=== PATIENT | male | born 1940 | race African-American/Black ===

== ENCOUNTER 2019-07-27 11:32 | Inpatient (IN) | payer OTHER ==
--- OUTSIDE RECORDS SUMMARY | 2019-07-27 11:34 | XMS REPORT | Summary of Care ---
:1940 Author Organization [facility] Address One [facility] [place] [id number] Care Team Providers Name Role Phone Unavailable Primary Care Provider Unavailable Reason for Referral Radiology Services (Routine) Status Reason Specialty Diagnoses / Referred By Contact Referred To Contact Procedures Pending Radiology Diagnoses Renal mass, right Gabriel Arenas MD Bc Us Imaging Procedures US RENAL BILATERAL [address] [place] [address] [address] [facility] [address] [place] [phone] Consult, Test & Treat (Routine) Status Reason Specialty Diagnoses / Referred By Referred To Procedures Contact Contact Pending Consult, Test, Urology Diagnoses Renal mass, right Gabriel Arenas, Luis Mccurdy, and Treat Procedures [place] OFFICE OUTPATIENT NEW 30 MINUTES MD DAM[place] [address] [facility], [place] [address] Phone: Reason for Visit Reason Comments Initial Consultation Encounter Details Date Type Department Care Team Description 07/08/2019 Office Visit [facility] Gabriel Arenas MD Initial Consultation Medicine Urology [address] [place] [address] 10th Floor, [address] [place], [place] [phone] Allergies No Known Allergiesdocumented as of this encounter (statuses as of 07/08/2019) Medications No known medicationsdocumented as of this encounter (statuses as of 07/08/2019) Active Problems Not on filedocumented as of this encounter (statuses as of 07/08/2019) Social History Tobacco Use Types Packs/Day Years Used Date Former Smoker Cigarettes 1 07/08/2011 - 07/08/2017 Smokeless Tobacco: Never Used Tobacco Cessation: Counseling Given: No Alcohol Use Drinks/Week oz/Week Comments Not Currently Sex Assigned at Date Recorded Not on file Job Start Date Occupation Industry Not on file Not on file Not on file Travel History Travel Start Travel End No recent travel history available. documented as of this encounter Last Filed Vital Signs Vital Sign Reading Time Taken Comments Blood Pressure 126/65 07/08/2019 2:50 PM EKG TECHNICIAN Pulse 66 07/08/2019 2:50 PM EKG TECHNICIAN Temperature 36.6 C (97.9 F) 07/08/2019 2:50 PM EKG TECHNICIAN Respiratory Rate - - Oxygen Saturation - - Inhaled Oxygen Concentration - - Weight - - Height - - Body Mass Index - - documented in this encounter Progress Notes Gabriel Arenas MD - 07/08/2019 3:00 PM CST Jose Saunders is a 78 y.o. male comes in with grand daughter with chief complaint of kidney mass CKD Work up for hematuria MATT and CT without contrast. Exophytic 2.5 cm right renal mass with solid component Benign appearng cysts left kidney No Known Allergies No current outpatient medications on file. Past Medical History: Diagnosis Date Hypertension Kidney disease Prostate cancer (HCCode) No past medical history pertinent negatives. No past surgical history on file. ROS: GENERAL: Denies recent weight changes, fever, weakness, fatigue, headaches INTEGUMENTARY: Negative EYES: Negative EARS, NOSE, MOUTH AND THROAT: Negative MUSCULOSKELATAL: Negative RESPIRATORY: Negative NEUROLOGIC: Negative CARDIOVASCULAR: Negative ENDOCRINE: Negative GASTROINTESTINAL: Negative GENITOURINARY: As per HPI HEMATOLOGIC/LYMPHATIC: Negative PSYCHOLOGIC: Negative ALLERGY/IMMUNOLOGIC: Negative OTHER: Denies HIV/AIDS PE GENERAL: Well developed, well nourished, in no acute distress. 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 Discussed strategy of observation with deferred therapy if lesion grows to > 2cm. I spent 30 minutes with patient and family, reviewing history and outside records and relevant imaging,conducting physical exam, plus discussion and coordination of care. More than 50% was spent counseling the patient on prognosis and treatment plan. Plan: ROV [address] Mccurdy with pre-clinic MATT documented in this encounter Plan of Treatment Name Type Priority Associated Diagnoses Order Schedule US RENAL BILATERAL Imaging Routine Renal mass, right Expected: 10/06/2019, Expires: 07/08/2020 Name Type Priority Associated Diagnoses Order Schedule AMB REF TO UROLOGY Outpatient Referral Routine Renal mass, right Ordered: [facility] 07/08/2019 Health Maintenance Due Date Last Done Comments TETANUS SHOT (ADULT) 1957 MEDICARE AWV (Initial) 12/03/2007 FALL SCREEN 12/25/2007 PNEUMOVAX >=65 (PPSV23) 12/25/2007 PREVNAR >=65 (PCV13) 12/25/2007 FLU VACCINE > 6 MONTHS 01/02/2019 documented as of this encounter Results Not on filedocumented in this encounter Visit Diagnoses Diagnosis Renal mass, right - Primary Unspecified disorder of kidney and ureter documented in this encounter Insurance Payer Benefit Plan / Subscriber ID Effective Dates Phone Address Type Group MEDICARE MEDICARE PART A xxxxxxxxxxx 2007-Present [address] Medicare [place] [address] [address] [place] [address] documented as of this encounter"
[2019-07-27 12:12] LABS: Arterial Blood Carboxyhemoglob 1.2 % (0-1.5); Blood Gas Oxyhemoglobin 89.7 % (94-97); Blood O2 Saturation 91.5 % (92-98.5)
[2019-07-27] MEDS ORDERED: METHYLPREDNISOLONE 125 MG INJ ONE (12:24)
[2019-07-27] MEDS ORDERED: MAGNESIUM SULFATE 1 gm IVPB 1 GM/100 ML BAG IV ONE (12:24)
[2019-07-27] MEDS ORDERED: LEVALBUTEROL 1.25 MG/3 ML NEB ONE (12:24)
--- NOTE | 2019-07-27 12:28 | RAD REPORT ---
EXAM DESCRIPTION: Elle Single View07/27/2019 12:15 pm CLINICAL HISTORY: Cough COMPARISON: none FINDINGS: Bilateral pulmonary opacities. Small pleural effusions suspected. The heart is enlarged IMPRESSION: These findings probably indicate CHF. Pneumonia can also have this appearance
[2019-07-27 12:40] LABS: Absolute Lymphocytes (CBC) 0.5 K/uL (0.7-4.9); Basophils % 0.9 % (0-1.3); Hematocrit 36.9 % (39.6-49.0); MPV 9.4 fL (7.6-11.3); RBC Red Blood Cell Count 4.48 M/uL (4.33-5.43)
[2019-07-27 12:56] LABS: ALT/SGPT 18 U/L (12-78); AST/SGOT 29 U/L (15-37); Albumin 3.4 g/dL (3.4-5.0); Alkaline Phosphatase 80 U/L (45-117); BUN Blood Urea Nitrogen 46 mg/dL (7-18); Bicarbonate 26 mmol/L (21-32); Bilirubin Direct 0.1 mg/dL (0-0.2); Bilirubin Total 0.5 mg/dL (0.2-1.0); Glucose Level 133 mg/dL (74-106); Lipase 261 U/L (73-393); NT PRO-BNP 1372 pg/mL (<450); Potassium 4.6 mmol/L (3.5-5.1); Protein, Total 7.2 g/dL (6.4-8.2); Sodium Level 138 mmol/L (136-145); Troponin (Emerg Dept Use Only) < 0.02 ng/mL (0.0-0.045)
[2019-07-27 13:05] LABS: Blood Morphology Comment NOT SEEN (NOT SEEN); Platelet Estimate ADEQ; Urine White Blood Cell Casts OK
[2019-07-27] MEDS ORDERED: ONDANSETRON 4 MG/2 ML VIAL IV PRN (13:40)
[2019-07-27] MEDS ORDERED: ACETAMINOPHEN 500 MG TAB PO PRN (13:40)
--- NOTE | 2019-07-27 13:42 | EDPHYS ---
Physician Documentation [facility] Name: Wyatt Saunders Age: 78 yrs Sex: Male : 1940 Arrival Date: 07/27/2019 Time: 11:33 Bed 6 Private MD: ED Physician Augusto Powers HPI: 07/27 13:39 This 78 yrs old Black Male presents to ER via Wheelchair with complaints of Weakness. rn 13:39 The patient presents to the emergency department with. rn 13:42 Onset: The symptoms/episode began/occurred 3 week(s) ago. Context: occurred at home. rn Severity of symptoms: At their worst the symptoms were moderate in the emergency department the symptoms are unchanged. The patient has experienced similar episodes in the past. Reports generalized weakness, sob, for 3 weeks or so, worse today, couldn't make it into gnosticism. No chest pain or abd pain. . Historical: - Allergies: 12:01 No Known Allergies; ca1 - Home Meds: 12:01 allopurinol 100 mg Oral tab 1 tab once daily [Active]; allopurinol 300 mg Oral tab 1 ca1 tab nightly [Active]; amlodipine 10 mg tab 1 tab once daily [Active]; aspirin 81 mg Oral chew 1 tab once daily [Active]; atorvastatin 80 mg oral tab 1 tab once daily [Active]; carvedilol 25 mg oral tab 1 tab 2 times per day [Active]; cat's claw (uncaria tomentosa) 500 mg oral cap 1 tab twice a day [Active]; FeroSul 325 mg (65 mg iron) oral tab 2 tab daily [Active]; lisinopril 40 mg Oral tab 1 tab once daily [Active]; Vascepa 1 gram oral cap 2 caps 2 times per day [Active]; - PMHx: 12:01 Gout; Hypertension; Hyperlipidemia; ca1 - Immunization history:: Adult Immunizations up to date. - Coronavirus screen:: The patient has NOT traveled to [place] in the past 14 days. The patient has NOT had contact with known/suspected case of Coronavirus?. - Social history:: Smoking status: Patient denies any tobacco usage or history of. - Family history:: not pertinent. - Ebola Screening: : Patient negative for fever greater than or equal to 101.5 degrees Fahrenheit, and additional compatible Ebola Virus Disease symptoms Patient denies exposure to infectious person Patient denies travel to an Ebola-affected area in the 21 days before illness onset No symptoms or risks identified at this time. - Hospitalizations: : No recent hospitalization is reported. ROS: 13:42 Constitutional: Negative for fever, chills, and weight loss, Eyes: Negative for injury, rn pain, redness, and discharge, Neck: Negative for injury, pain, and swelling, Cardiovascular: + leg swelling, neg for chest pain Respiratory: Negative for wheezing, and pleuritic chest pain, Abdomen/GI: Negative for abdominal pain, nausea, vomiting, diarrhea, and constipation, MS/Extremity: Negative for injury and deformity, Skin: Negative for injury, rash, and discoloration, Neuro: Negative for headache,numbness, tingling, and seizure. Exam: 13:42 Constitutional: This is a well developed, well nourished patient who is awake, alert, rn moderate tachypnea Head/Face: Normocephalic, atraumatic. ENT: dry MM, no stridor Cardiovascular: Regular rhythm, intact distal pulses Respiratory: + diminished bilateral bases, + moderate tachypnea, + bilateral exp wheezing. Abdomen/GI: sof,t non-tender MS/ Extremity: Pulses equal, no cyanosis. 2+ pitting edema bilateral lower ext Neuro: Awake and alert, GCS 15, oriented to person, place, time, and situation. Cranial nerves II-XII grossly intact. Motor strength 5/5 in all extremities. Sensory grossly intact. Vital Signs: 12:01 BP 106 / 58; Pulse 71; Resp 24 S; Temp 96.6(TE); Pulse Ox 57% on R/A; Weight 107.5 kg ca1 (R); Height 5 ft. 6 in. (167.64 cm) (R); Pain 0/10; 12:43 BP 114 / 68; Pulse 62; Resp 16; Pulse Ox 97% on 50% BiPAP; Pain 0/10; ph 13:30 BP 117 / 72; Pulse 68; Resp 15; Pulse Ox 97% on 50% BiPAP; ph 14:26 BP 114 / 76; Pulse 65; Resp 14; Pulse Ox 96% on 50% BiPAP; ph 15:30 BP 123 / 73; Pulse 73; Resp 16; Pulse Ox 96% on 50% BiPAP; ph 15:30 Temp 97.7(TE); ph 12:01 Body Mass Index 38.25 (107.50 kg, 167.64 cm) ca1 MDM: 11:43 Patient medically screened. rn 07/27 11:51 Order name: Blood Culture Adult (2) rn 07/27 11:51 Order name: BMP; Complete Time: 13:14 rn 07/27 11:51 Order name: CBC with Diff; Complete Time: 13:14 rn 07/27 11:51 Order name: Hepatic Function; Complete Time: 13: rn 07/27 11:51 Order name: Lipase; Complete Time: 13: rn 07/27 11:51 Order name: NT PRO-BNP; Complete Time: 13: rn 07/27 11:51 Order name: Troponin (emerg Dept Use Only); Complete Time: 13: rn 07/27 11:51 Order name: Flu; Complete Time: 13: rn 07/27 11:51 Order name: Procalcitonin; Complete Time: 13:29 rn 07/27 11:51 Order name: Lactate; Complete Time: 13: rn 07/27 11:52 Order name: ABG; Complete Time: 12:51 rn 07/27 13:06 Order name: CBC Smear Scan; Complete Time: 13:14 [facility] 07/27 13:49 Order name: Urinalysis EDCT 07/27 13:49 Order name: CBC with Automated Diff EDCT 07/27 13:49 Order name: CBC with Automated Diff EDCT 07/27 13:49 Order name: CKMB Creatine Kinase MB EDCT 07/27 13:49 Order name: CKMB Creatine Kinase MB EDCT 07/27 13:49 Order name: CKMB Creatine Kinase MB EDCT 07/27 13:50 Order name: CKMB Creatine Kinase MB EDCT 07/27 13:50 Order name: Comprehensive Metabolic Panel EDCT 07/27 13:50 Order name: Comprehensive Metabolic Panel EDCT 07/27 13:50 Order name: Creatine Phosphokinase EDCT 07/27 13:50 Order name: Creatine Phosphokinase EDCT 07/27 13:50 Order name: Creatine Phosphokinase EDCT 07/27 13:50 Order name: Creatine Phosphokinase EDCT 07/27 13:50 Order name: Magnesium EDMS 07/27 13:50 Order name: Magnesium EDMS 07/27 13:50 Order name: Phosphorus EDMS 07/27 13:50 Order name: Phosphorus [facility] 07/27 13:50 Order name: Troponin I [facility] 07/27 11:51 Order name: XRAY CXR (1 view); Complete Time: 12:51 rn 07/27 11:51 Order name: EKG; Complete Time: 11:53 rn 07/27 11:51 Order name: Cardiac monitoring; Complete Time: 12:10 rn 07/27 11:51 Order name: EKG - Nurse/Tech; Complete Time: 12:11 rn 07/27 11:51 Order name: IV Saline Lock; Complete Time: 12:32 rn 07/27 11:51 Order name: Labs collected and sent; Complete Time: 12:32 rn 07/27 11:51 Order name: O2 Per Protocol; Complete Time: 12:11 rn 07/27 11:51 Order name: O2 Sat Monitoring; Complete Time: 12:11 rn 07/27 11:52 Order name: BIPAP 07/27 13:48 Order name: CONS Physician Consult [facility] 07/27 13:48 Order name: Heart Healthy [facility] 07/27 13:50 Order name: Troponin I [facility] 07/27 13:50 Order name: Troponin I [facility] 07/27 13:51 Order name: Troponin I [facility] 07/27 13:59 Order name: Echo with Doppler [facility] Administered Medications: 12:35 Drug: Magnesium Sulfate 1 grams Route: IVPB; Infused Over: 1 hrs; Site: left ph antecubital; 16:47 Follow up: IV Status: Completed infusion; IV Intake: 50ml bp 12:36 Drug: SOLU-Medrol 125 mg Route: IVP; Site: left antecubital; ph 13:20 Follow up: Response: No adverse reaction ph 12:36 Drug: Xopenex (3) 1.25 mg Route: Inhalation; ph 13:30 Follow up: Response: No adverse reaction ph 14:24 Drug: Lasix 40 mg Route: IVP; Site: left antecubital; ph 15:00 Follow up: Response: No adverse reaction ph 16:47 Follow up: Response: No adverse reaction bp Disposition: 07/27/19 13:41 Hospitalization ordered by Narendra Ji for Inpatient Admission. Preliminary diagnosis are Pulmonary edema, Hypoxemia, Acute kidney failure. - Bed requested for Telemetry/MedSurg (Inpatient). - Status is Inpatient Admission. bp - Condition is Stable. - Problem is new. - Symptoms have improved. Critical care time excluding procedures: 13:40 Critical care time: Bedside Care: 25 minutes, Family Intervention: 5 minutes. Total rn time: 30 minutes Signatures: Dispatcher [employer] EDMS SalazarStout Lashawn aguilar Augusto Powers MD MD rn Sherry Bedolla, RN RN ph Callum Blanco, RN RN bp Acob, Naye, RN RN ca1 Corrections: (The following items were deleted from the chart) 15:46 13:41 Hospitalization Ordered by Narendra Ji MD for Inpatient Admission. Preliminary ms diagnosis is Pulmonary edema; Hypoxemia; Acute kidney failure. Bed requested for Telemetry/MedSurg (Inpatient). Status is Inpatient Admission. Condition is Stable. Problem is new. Symptoms have improved. rn 16:53 15:46 07/27/2019 13:41 Hospitalization Ordered by Narendra Ji MD for Inpatient bp Admission. Preliminary diagnosis is Pulmonary edema; Hypoxemia; Acute kidney failure. Bed requested for Telemetry/MedSurg (Inpatient). Status is Inpatient Admission. Condition is Stable. Problem is new. Symptoms have improved. ms
--- NOTE | 2019-07-27 13:42 | ER ---
Nurse's Notes [facility] Name: Wyatt Saunders Age: 78 yrs Sex: Male : 1940 Arrival Date: 07/27/2019 Time: 11:33 Bed 6 Private MD: Diagnosis: Pulmonary edema;Hypoxemia;Acute kidney failure Presentation: 07/27 11:40 Presenting complaint: Presenting complaint: Patient states: SOB x 1-2 weeks ago, worst ca1 on exertion. Reports cough, denies fever. Today, generalized body weakness and SOB at rest SPO2 at 57% RA. 11:54 Transition of care: patient was not received from another setting of care. Onset of ca1 symptoms was July 27, 2019. Risk Assessment: Do you want to hurt yourself or someone else? Patient reports no desire to harm self or others. Initial Sepsis Screen: Does the patient meet any 2 criteria? RR > 20 per min. Yes Does the patient have a suspected source of infection? Yes: Productive cough/pneumonia. Care prior to arrival: None. 11:54 Method Of Arrival: Wheelchair ca1 11:54 Acuity: NGOZI 2 ca1 Triage Assessment: 16:47 Respiratory: Onset: The symptoms/episode began/occurred this morning, the patient has bp moderate shortness of breath. Historical: - Allergies: 12:01 No Known Allergies; ca1 - Home Meds: 12:01 allopurinol 100 mg Oral tab 1 tab once daily [Active]; allopurinol 300 mg Oral tab 1 ca1 tab nightly [Active]; amlodipine 10 mg tab 1 tab once daily [Active]; aspirin 81 mg Oral chew 1 tab once daily [Active]; atorvastatin 80 mg oral tab 1 tab once daily [Active]; carvedilol 25 mg oral tab 1 tab 2 times per day [Active]; cat's claw (uncaria tomentosa) 500 mg oral cap 1 tab twice a day [Active]; FeroSul 325 mg (65 mg iron) oral tab 2 tab daily [Active]; lisinopril 40 mg Oral tab 1 tab once daily [Active]; Vascepa 1 gram oral cap 2 caps 2 times per day [Active]; - PMHx: 12:01 Gout; Hypertension; Hyperlipidemia; ca1 - Immunization history:: Adult Immunizations up to date. - Coronavirus screen:: The patient has NOT traveled to [place] in the past 14 days. The patient has NOT had contact with known/suspected case of Coronavirus?. - Social history:: Smoking status: Patient denies any tobacco usage or history of. - Family history:: not pertinent. - Ebola Screening: : Patient negative for fever greater than or equal to 101.5 degrees Fahrenheit, and additional compatible Ebola Virus Disease symptoms Patient denies exposure to infectious person Patient denies travel to an Ebola-affected area in the 21 days before illness onset No symptoms or risks identified at this time. - Hospitalizations: : No recent hospitalization is reported. Screenin:38 Abuse screen: Denies threats or abuse. Denies injuries from another. Nutritional ph screening: No deficits noted. Tuberculosis screening: No symptoms or risk factors identified. Fall Risk No fall in past 12 months (0 pts). No secondary diagnosis (0 pts). IV access (20 points). Ambulatory Aid- None/Bed Rest/Nurse Assist (0 pts). Gait- Weak (10 pts.). Mental Status- Oriented to own ability (0 pts). Total Pat Fall Scale indicates Low Risk Score (25-44 pts). Fall prevention measures have been instituted. Side Rails Up X 2 Frequent Obs/Assesments occuring Family Present and informed to notify staff if they need to leave bedside As available Patient and Family Educated on Fall Prevention Program and strategies. Assessment: 11:45 Reassessment: Dr. Powers at bedside. ca1 12:40 General: Appears in no apparent distress. uncomfortable, well groomed, Behavior is ph calm, cooperative, appropriate for age. Pain: Denies pain. Neuro: Level of Consciousness is awake, alert, obeys commands, Oriented to person, place, situation, Speech is normal, Reports weakness in "all over". Cardiovascular: Denies chest pain, fatigue, lightheadedness, shortness of breath, Capillary refill is sluggish Patient's skin is warm and dry. Rhythm is sinus rhythm. Respiratory: Reports shortness of breath at rest labored breathing Airway is patent Respiratory effort is labored, Respiratory pattern is tachypnea. GI: Abdomen is distended, Patient currently denies abdominal pain, nausea, vomiting. Derm: Skin is intact, Skin is pink, warm \\T\\ dry. 12:43 Reassessment: Patient appears in no apparent distress at this time. Patient and/or ph family updated on plan of care and expected duration. Pain level reassessed. Pt on bi-pap, tolerating well, VSS< denies pain, family at bedside, awaiting lab and radiology results. 14:00 Reassessment: Patient appears in no apparent distress at this time. Patient and/or ph family updated on plan of care and expected duration. Pain level reassessed. 15:00 Reassessment: Patient appears in no apparent distress at this time. No changes from ph previously documented assessment. Patient and/or family updated on plan of care and expected duration. Pain level reassessed. 16:46 Reassessment: ADMIT COMPLETE. PT LORIN WITH PCT ON NRB. Respiratory: Breath sounds with bp wheezes bilaterally. Vital Signs: 12:01 BP 106 / 58; Pulse 71; Resp 24 S; Temp 96.6(TE); Pulse Ox 57% on R/A; Weight 107.5 kg ca1 (R); Height 5 ft. 6 in. (167.64 cm) (R); Pain 0/10; 12:43 BP 114 / 68; Pulse 62; Resp 16; Pulse Ox 97% on 50% BiPAP; Pain 0/10; ph 13:30 BP 117 / 72; Pulse 68; Resp 15; Pulse Ox 97% on 50% BiPAP; ph 14:26 BP 114 / 76; Pulse 65; Resp 14; Pulse Ox 96% on 50% BiPAP; ph 15:30 BP 123 / 73; Pulse 73; Resp 16; Pulse Ox 96% on 50% BiPAP; ph 15:30 Temp 97.7(TE); ph 12:01 Body Mass Index 38.25 (107.50 kg, 167.64 cm) ca1 ED Course: 11:33 Patient arrived in ED. as 11:43 Augusto Powers MD is Attending Physician. rn 11:57 Triage completed. ca1 12:01 Arm band placed on right wrist. ca1 12:10 EKG done, by ED staff, reviewed by Augusto Powers MD. jb1 12:10 First set of blood cultures drawn by ma. jb1 12:11 Sherry Bedolla, RN is Primary Nurse. ph 12:17 XRAY CXR (1 view) In Process Unspecified. EDMS 12:25 Second set of blood cultures drawn by ma. jb1 12:31 Initial lab(s) drawn, by me, sent to lab. Flu and/or RSV swab sent to lab. Inserted jb1 saline lock: 22 gauge in left antecubital area, using aseptic technique. Blood collected. 12:45 Patient has correct armband on for positive identification. Bed in low position. Call ph light in reach. Side rails up X2. conveyor monitor on. Pulse ox on. NIBP on. Door closed. Noise minimized. Warm blanket given. Pillow given. Head of bed elevated. 12:45 No provider procedures requiring assistance completed. ph 13:40 Narendra Ji MD is Hospitalizing Provider. rn 16:47 Patient admitted, IV remains in place. bp Administered Medications: 12:35 Drug: Magnesium Sulfate 1 grams Route: IVPB; Infused Over: 1 hrs; Site: left ph antecubital; 16:47 Follow up: IV Status: Completed infusion; IV Intake: 50ml bp 12:36 Drug: SOLU-Medrol 125 mg Route: IVP; Site: left antecubital; ph 13:20 Follow up: Response: No adverse reaction ph 12:36 Drug: Xopenex (3) 1.25 mg Route: Inhalation; ph 13:30 Follow up: Response: No adverse reaction ph 14:24 Drug: Lasix 40 mg Route: IVP; Site: left antecubital; ph 15:00 Follow up: Response: No adverse reaction ph 16:47 Follow up: Response: No adverse reaction bp Intake: 16:47 IV: 50ml; Total: 50ml. bp Outcome: 13:41 Decision to Hospitalize by Provider. rn 16:46 Admitted to Med/surg accompanied by tech, via stretcher, with oxygen, with chart, bp Report called to GIUSEPPE RN 16:46 Condition: stable 16:46 Instructed on the need for admit. 16:53 Patient left the ED. bp Signatures: Dispatcher [employer] EDMS Fabian St jb1 Cheryl Guadalupe Roman, MD MD rn Hall, Patricia, RN RN ph Peltier, Brian, RN RN bp Acob, Cheryl, RN RN ca1 Corrections: (The following items were deleted from the chart) 11:57 11:40 Presenting complaint: ca1 ca1 12:02 12:02 Reassessment: Dr. Powers at bedside ca1 ca1
--- NOTE | 2019-07-27 13:53 | P.HP ---
Certification for Inpatient Patient admitted to: Inpatient With expected LOS: >2 Midnights Practitioner: I am a practitioner with admitting privileges, knowledge of patient current condition, hospital course, and medical plan of care. Services: Services provided to patient in accordance with Admission requirements found in Title 42 Section 412.3 of the Code of Federal Regulations Patient History Date of Service: 07/27/19 Reason for admission: SOB History of Present Illness: 78-year-old AAM with past medical history of hypertension, gout, CKD stage 3 presented to ER with shortness of breath. At the time of interview patient is on BiPAP hence most of the history is obtained from family members who is at the bedside. They stated that he was having cough for a while and has seen his PCP and was treated with antibiotics with some relief. but he started having shortness of breath which has been progressively worsening over the last few days and was brought to ER as he had a hard time catching breath. At that table to the ER his pulse ox was 60s and was placed on BiPAP. workup in the ER was consistent with possible CHF exacerbation with fluid overload and was admitted for further management. Patient denies any chest pain No fever, no sick contacts. No recent travel outside the country The patient was seen in the ER and the pulse ox was 94 on BiPAP and his vitals were stable. Home medications list reviewed: Yes - Past Medical/Surgical History Diabetic: No Past Medical History: Reviewed- Non-Contributory -: HTN -: Gout -: CKD stage 3 Past Surgical History: Reviewed- Non-Contributory - Family History Family History: Reviewed- Non-Contributory - Social History Smoking Status: Never smoker Review of Systems 10-point ROS is otherwise unremarkable General: Other (Denies any fever or chills) Physical Examination - Vital Signs Temperature: 97.8 F Blood Pressure: 116/74 Pulse: 78 Respirations: 20 Pulse Ox (%): 94 - Physical Exam General: Alert, Mild distress, Obese HEENT: Atraumatic, Normocephalic Neck: Supple, 2+ carotid pulse no bruit Respiratory: Diminished, Crackles/rales, Expiratory wheezes Cardiovascular: Regular rate/rhythm, Edema Capillary refill: <2 Seconds Gastrointestinal: Soft and benign, W/out hepatosplenomegaly Musculoskeletal: No clubbing, Swelling Integumentary: No rashes, No breakdown Neurological: Normal speech, Normal strength at 5/5 x4 extr Lymphatics: No axilla or inguinal lymphadenopathy Urinary: Other (No bladder distention) External genitalia: Deferred Rectal: Deferred - Studies Laboratory Data (last 24 hrs) 07/27/19 12:25: WBC 5.2, Hgb 11.1 L, Hct 36.9 L, Plt Count 194 07/27/19 12:25: Sodium 138, Potassium 4.6, BUN 46 H, Creatinine 3.49 H, Glucose 133 H, Total Bilirubin 0.5, AST 29, ALT 18, Alkaline Phosphatase 80, Lipase 261 Microbiology Data (last 24 hrs): 07/27/19 12:25 Nasopharnyx Influenza Type A Antigen Screen - Final 07/27/19 12:25 Nasopharnyx Influenza Type B Antigen Screen - Final Assessment and Plan - Problems (Diagnosis) (1) Acute pulmonary edema Current Visit: Yes Status: Acute (2) Acute on chronic combined systolic and diastolic CHF (congestive heart failure) Current Visit: Yes Status: Acute (3) HTN (hypertension) Current Visit: Yes Status: Chronic (4) Acute worsening of stage 3 chronic kidney disease Current Visit: Yes Status: Acute (5) History of gout Current Visit: Yes Status: Chronic - Plan Admit to telemetry BiPAP Bronchodilators Aggressive diuresis Will get an echocardiogram Pulmonology consult Cardiology consult Continue home medications and titrate as needed Normal Procardia spreading along with normal lactic acid Monitor renal parameters Anti hypertensives titrated Will add on antitussives GI/DVT prophylaxis Advanced directives full code Discharge Plan: Home Plan to discharge in: 72 Hours - Advance Directives Does patient have a Living Will: No Does patient have a Durable POA for Healthcare: No Time Spent Managing Pts Care (In Minutes): 42
[2019-07-27] MEDS: ALBUTEROL 2.5 MG/3 ML NEB SOL NEB SCH ×2 (14:00→20:20)
[2019-07-27] MEDS: IPRATROPIUM BROM 0.5MG/2.5ML NEB SCH ×2 (14:00→20:20)
[2019-07-27] MEDS: FUROSEMIDE 40 MG/4 ML VIAL IV SCH (17:45)
[2019-07-27 18:25] LABS: Urine Appearance CLEAR; Urine Bilirubin NEGATIVE (NEG); Urine Blood NEGATIVE (NEG); Urine Color YELLOW; Urine Glucose NEGATIVE (NEG); Urine Protein 2+ (NEG); Urine Specific Gravity 1.015 (1.005-1.030); Urine Urobilinogen 0.2 mg/dL (0.2-1.0)
[2019-07-27 18:56] LABS: Urine Microscopic Reflex ORDER UMIC
[2019-07-27 18:57] LABS: Urine Bacteria <20 /HPF (NONE SEEN); Urine Culture Reflex Order NOT NEEDED; Urine RBC NONE SEEN /HPF (NONE SEEN)
[2019-07-27 18:58] LABS: Urine Amorphous Sediment TRACE /HPF (NONE SEEN); Urine Mucus SLIGHT /HPF (NONE SEEN)
[2019-07-27 21:00] LABS: CKMB Creatine Kinase MB 3.9 ng/mL (0.3-3.6); Creatine Phosphokinase 176 U/L (39-308); Troponin I < 0.02 ng/mL (0.0-0.045)
[2019-07-28] MEDS: FUROSEMIDE 40 MG/4 ML VIAL IV SCH ×4 (00:37→23:09)
[2019-07-28] MEDS: ALBUTEROL 2.5 MG/3 ML NEB SOL NEB SCH ×2 (02:00→07:50)
[2019-07-28] MEDS: IPRATROPIUM BROM 0.5MG/2.5ML NEB SCH ×4 (02:00→19:50)
[2019-07-28 04:55] LABS: Albumin 2.9 g/dL (3.4-5.0); Bilirubin Total 0.3 mg/dL (0.2-1.0); Phosphorus 6.8 mg/dL (2.5-4.9); Potassium 4.9 mmol/L (3.5-5.1); Protein, Total 6.6 g/dL (6.4-8.2)
[2019-07-28 05:23] LABS: CKMB Creatine Kinase MB 2.4 ng/mL (0.3-3.6); Creatine Phosphokinase 119 U/L (39-308); Troponin I < 0.02 ng/mL (0.0-0.045)
[2019-07-28 05:57] LABS: Absolute Lymphocytes (CBC) 0.2 K/uL (0.7-4.9); Basophils % 0.9 % (0-1.3); Hematocrit 35.1 % (39.6-49.0); Lymphocytes % 5.1 % (15.3-44.8); MPV 9.1 fL (7.6-11.3); RBC Red Blood Cell Count 4.25 M/uL (4.33-5.43)
[2019-07-28 07:17] LABS: Anisocytosis 1+; Blood Morphology Comment NOTED (NOT SEEN); Platelet Estimate ADEQ; Poikilocytosis 1+; Urine White Blood Cell Casts OK
--- NOTE | 2019-07-28 08:27 | CON ---
History Of Present Illness: Mr. Saunders is 78-year-old. He came to the hospital with worsening dyspnea . He is found to have pulmonary edema, pedal edema, and an echocardiogram is pending. The patient h as longstanding hypertension. He has renal insufficiency and he has some renal masses, they have not been biopsied. I think the plan is to do serial CAT scanning and see if there needs to be a biopsy. Apparently, each kidney has several of these. The radiologist suspects they may be benign cyst and recommended CT with contrast. The patient has a history of prostate cancer. Medications: Outpatient medications are lisinopril, iron sulfate, carvedilol, atorvastatin, aspirin, amlodipine, allopurinol, and Vascepa. His primary care doctor is Mely Toure in [place]. Allergies: HE HAS NO ALLERGIES. Social History: He uses no tobacco. He feels he was exposed to a lot of secondhand smoke in his occ upation. Physical Examination: Vital Signs: 5 feet 6 inches, 222 pounds, obese. General: Alert and oriented, not in distress. Lungs: Revealed some sparse crackles. Heart: Does not reveal a significant murmur or gallop. Abdomen: Soft. Extremities: Diminished pulses, but palpable 1 to 2+ pitting edema. Skin: Has a lot of cutaneous changes on shins consistent with venous insufficiency. Laboratory Data: Reveals normal troponins, N-terminal BNP is 1372, Procalcitonin level is 0.38. His creatinine is 3.93 today. I think he has had some diuresis. His admitting creatinine was 3.49. Assessment And Plan: The patient has a combination of cardiac and renal insufficiency causing pulmon laury edema and pedal edema. Diuresis may help with the edema, may make the kidneys worse. Nephrology 's input will be very valuable here. I am not sure what has been done as an outpatient with regard t o his kidneys, but probably stopping the DUSTIN inhibitors and angiotensin receptor blockers, get an ech o will be helpful along with the diuresis. SH/MODL Voice ID: [id number] Report ID: [id number]
[2019-07-28] MEDS: ENOXAPARIN 30 MG/0.3 ML SQ SCH (08:39)
--- NOTE | 2019-07-28 08:54 | EKG ---
Test Date: 2019-07-27 Test Time: 12:07:26 Systems Development Consultant: ELAINE MEASUREMENT RESULTS: Intervals: Rate: 65 OR: 210 QRSD: 112 QT: 450 QTc: 468 [place]: P: 59 OR: 210 QRS: -3 T: 70 INTERPRETIVE STATEMENTS: Sinus rhythm with 1st degree AV block Otherwise normal ECG No previous ECG available for comparison Electronically Signed On 07-28-19 08:53:30 SHREDDING FLOOR EQUIPMENT OPERATOR by Aryan Loera
[2019-07-28] MEDS ORDERED: ENOXAPARIN 40 MG/0.4 ML SQ SCH ×2 (09:00)
[2019-07-28] MEDS ORDERED: ALBUTEROL 2.5 MG/3 ML NEB SOL NEB PRN ×2 (12:14→17:00)
--- NOTE | 2019-07-28 12:15 | P.CNS ---
Date of Consult: 07/28/19 Chief Complaint: SOB History of Present Illness: Patient is 78 years of age admitted with worsening dyspnea over the past few weeks history of chronic renal failure seeing an nephrology is not taking any diuretics no prior history of pulmonary problems he does have symptoms of sleep apnea i.e. snoring excessive daytime somnolence never been tested for sleep apnea denies any of the pulmonary complaints feeling better Allergies No Known Allergies Allergy (Unverified 07/27/19 17:22) Home Medications: Allopurinol 1 tab PO BEDTIME 07/27/19 Allopurinol 1 tab PO DAILY 07/27/19 Amlodipine [Norvasc*] 10 mg PO BID 07/27/19 Aspirin 81 mg PO DAILY 07/27/19 Atorvastatin Calcium [Lipitor] 80 mg PO DAILY 07/27/19 Carvedilol [Coreg] 1 tab PO BID 07/27/19 Ferrous Sulfate [Feosol] 2 tab PO DAILY 07/27/19 Icosapent Ethyl [Vascepa 1 gm Cap] 2 cap PO BID 07/27/19 Lisinopril [Zestril] 40 mg PO DAILY 07/27/19 - Past Medical/Surgical History Diabetic: No -: HTN -: Gout -: CKD stage 3 - Social History Place of Residence: Home Review of Systems 10-point ROS is otherwise unremarkable Physical Examination Temp Pulse Resp BP Pulse Ox 98.1 F 92 H 20 130/68 95 07/28/19 08:00 07/28/19 08:40 07/28/19 08:00 07/28/19 08:40 07/28/19 08:00 General: Alert, Oriented x3 Respiratory: Clear to auscultation bilaterally Cardiovascular: No edema, Normal S1 S2 Gastrointestinal: Normal bowel sounds, Soft and benign Laboratory Data (last 24 hrs) 07/27/19 12:25: WBC 5.2, Hgb 11.1 L, Hct 36.9 L, Plt Count 194 07/27/19 12:25: Sodium 138, Potassium 4.6, BUN 46 H, Creatinine 3.49 H, Glucose 133 H, Total Bilirubin 0.5, AST 29, ALT 18, Alkaline Phosphatase 80, Lipase 261 - Problems (1) Acute on chronic combined systolic and diastolic CHF (congestive heart failure) Current Visit: Yes Status: Acute Plan: Patient is 78 years of age admitted with progressive dyspnea echocardiogram is pending patient has hypertension chronic renal failure does not take any diuretics at home chest x-rays consistent with volume overload cardiomegaly possible left effusion interstitial changes with elevated BNP patient is also hypoxic hypercapnic never smoked (2) Sleep apnea Current Visit: Yes Status: Acute Plan: Patient is at risk for sleep apnea complaining of loud snoring excessive daytime somnolence possible apneic spells no significant smoking history continue with bronchodilators for not titrate sat to 90% repeat ABGs thyroid function test ordered Qualifiers: Sleep apnea type: unspecified type Qualified Code(s): G47.30 - Sleep apnea , unspecified
--- NOTE | 2019-07-28 13:09 | P.PN ---
Subjective Date of Service: 07/28/19 Chief Complaint: SOB Patient states his breathing is better today. He is still requiring BiPAP. He is complaining of abdominal distention. Physical Examination - Vital Signs Temperature: 98.1 F Blood Pressure: 130/68 Pulse: 92 Respirations: 20 Pulse Ox (%): 95 - Physical Exam General: Alert, In no apparent distress, Oriented x3 HEENT: Other (BiPAP is applied.) Neck: Supple, No Thyromegaly Respiratory: Diminished (Worse on the right.), Crackles/rales (Mild bibasilar rales) Cardiovascular: Regular rate/rhythm, Normal S1 S2, Edema (2+ bilateral lower extremity pitting edema) Gastrointestinal: Normal bowel sounds, No tenderness, Distended, Ascites Musculoskeletal: No erythema Integumentary: No rashes, No erythema Neurological: Normal speech, Normal strength at 5/5 x4 extr - Studies Laboratory Data (last 24 hrs) 07/27/19 12:25: WBC 5.2, Hgb 11.1 L, Hct 36.9 L, Plt Count 194 Microbiology Data (last 24 hrs): 07/27/19 12:25 Nasopharnyx Influenza Type A Antigen Screen - Final 07/27/19 12:25 Nasopharnyx Influenza Type B Antigen Screen - Final Assessment And Plan - Current Problems (Diagnosis) (1) Acute pulmonary edema Current Visit: Yes Status: Acute (2) Acute worsening of stage 3 chronic kidney disease Current Visit: Yes Status: Acute (3) Acute respiratory failure with hypoxia Current Visit: Yes Status: Acute (4) Renal mass Current Visit: Yes Status: Acute (5) Sleep apnea Current Visit: Yes Status: Acute Qualifiers: Sleep apnea type: unspecified type Qualified Code(s): G47.30 - Sleep apnea , unspecified (6) HTN (hypertension) Current Visit: Yes Status: Chronic - Plan Patient seen by pulmonary and cardiology. Their inputs are appreciated. Pulmonary edema, volume overload/anasarca secondary to a combination of renal failure and heart failure. Continue IV Lasix, watch renal function on IV Lasix. Nephrology consult to assist with managing. Echocardiogram is pending. BiPAP p.r.n. BiPAP at night during sleep.
[2019-07-28 13:10] LABS: Arterial Blood Carboxyhemoglob 0.7 % (0-1.5); Blood Gas Oxyhemoglobin 88.1 % (94-97); Blood O2 Saturation 89.7 % (92-98.5)
[2019-07-28 13:36] LABS: CKMB Creatine Kinase MB 2.4 ng/mL (0.3-3.6); Creatine Phosphokinase 135 U/L (39-308); Troponin I < 0.02 ng/mL (0.0-0.045)
[2019-07-28 15:31] VITALS: BMI 35.9
--- NOTE | 2019-07-28 16:25 | P.CNS ---
Date of Consult: 07/28/19 Reason for Consult: SHALINI Requesting Physician: pepe justin Chief Complaint: SOB History of Present Illness: 78 yo BM CKD, HTN, CHF presented to the ER with 3 weeks of moderate, progressive dyspnea with associated edema in the setting of edema and CHF. He follows with Dr. Gonzalez for CKD and Dr. Mccurdy for his renal mass. No NSAIDs. Fair urine output with nocturia. Denies difficulty emptying his bladder. States that he has HTN and is a borderline DM. 78-year-old AAM with past medical history of hypertension, gout, CKD stage 3 presented to ER with shortness of breath. At the time of interview patient is on BiPAP hence most of the history is obtained from family members who is at the bedside. They stated that he was having cough for a while and has seen his PCP and was treated with antibiotics with some relief. but he started having shortness of breath which has been progressively worsening over the last few days and was brought to ER as he had a hard time catching breath. At that table to the ER his pulse ox was 60s and was placed on BiPAP. workup in the ER was consistent with possible CHF exacerbation with fluid overload and was admitted for further management. Patient denies any chest pain No fever, no sick contacts. No recent travel outside the country. 13:39 This 78 yrs old Black Male presents to ER via Wheelchair with complaints of Weakness. rn 13:39 The patient presents to the emergency department with. rn 13:42 Onset: The symptoms/episode began/occurred 3 week(s) ago. Context: occurred at home. rn Severity of symptoms: At their worst the symptoms were moderate in the emergency department the symptoms are unchanged. The patient has experienced similar episodes in the past. Reports generalized weakness, sob, for 3 weeks or so, worse today, couldn't make it into jew. No chest pain or abd pain Allergies No Known Allergies Allergy (Unverified 07/27/19 17:22) Home medications list reviewed: Yes Home Medications: Allopurinol 1 tab PO BEDTIME 07/27/19 Allopurinol 1 tab PO DAILY 07/27/19 Amlodipine [Norvasc*] 10 mg PO BID 07/27/19 Aspirin 81 mg PO DAILY 07/27/19 Atorvastatin Calcium [Lipitor] 80 mg PO DAILY 07/27/19 Carvedilol [Coreg] 1 tab PO BID 07/27/19 Ferrous Sulfate [Feosol] 2 tab PO DAILY 07/27/19 Icosapent Ethyl [Vascepa 1 gm Cap] 2 cap PO BID 07/27/19 Lisinopril [Zestril] 40 mg PO DAILY 07/27/19 - Past Medical/Surgical History Diabetic: No -: HTN -: Gout -: CKD stage 3 - Social History Place of Residence: Home Review of Systems 10-point ROS is otherwise unremarkable General: Weakness, Malaise Respiratory: Shortness of Breath, SOB with Excertion Cardiovascular: Edema Neurological: Weakness Physical Examination Temp Pulse Resp BP Pulse Ox 98.1 F 92 H 20 130/68 95 07/28/19 13:10 07/28/19 13:10 07/28/19 13:10 07/28/19 13:10 07/28/19 13:10 General: Alert, Oriented x3, Cooperative HEENT: Atraumatic, Mucous membr. moist/pink Neck: Supple, JVD distended Respiratory: Clear to auscultation bilaterally Cardiovascular: Regular rate/rhythm, Edema Gastrointestinal: Soft and benign, No guarding, Distended Musculoskeletal: No clubbing, No contractures Integumentary: No rashes, No cyanosis Neurological: Normal speech Blood work reviewed in the chart. Cr 3.93 Imagings Data: EXAM DESCRIPTION: Elle Single View07/27/2019 12:15 pm CLINICAL HISTORY: Cough COMPARISON: none FINDINGS: Bilateral pulmonary opacities. Small pleural effusions suspected. The heart is enlarged IMPRESSION: These findings probably indicate CHF. Pneumonia can also have this appearance Conclusions/Impression: A/ SHALINI likely CRS. HyperPO4 CKD IV with proteinuria. Renal mass vs cysts. Diastolic CHF, A/C. HTN with CKD/ CHF. DM II with CKD? Gout. Anemia in chronic illness. Iron deficiency. Moderate protein malnutrition. P/ Continue current POC and Medications. Increase Lasix q6h. Give dose of metolazone. Low sodium diet. Echocardiogram pending. Keep legs elevated as tolerated. No NSAIDs. AM labs. Daily weight. Thank you kindly for the consultation.
[2019-07-28] MEDS ORDERED: METOLAZONE 5 MG TABLET PO SCH (17:00)
[2019-07-28] MEDS ORDERED: FUROSEMIDE 40 MG/4 ML VIAL IV SCH (17:00)
[2019-07-28 20:51] LABS: UR MICROALBUMIN 43.6 mg/dL (< 1.9)
[2019-07-29] MEDS: IPRATROPIUM BROM 0.5MG/2.5ML NEB SCH ×4 (01:10→19:55)
[2019-07-29] MEDS: FUROSEMIDE 40 MG/4 ML VIAL IV SCH ×4 (04:32→23:16)
[2019-07-29 05:31] LABS: Urine Appearance CLEAR; Urine Bilirubin NEGATIVE (NEG); Urine Blood NEGATIVE (NEG); Urine Color YELLOW; Urine Glucose NEGATIVE (NEG); Urine Protein TRACE (NEG); Urine Specific Gravity <=1.005 (1.005-1.030); Urine Urobilinogen 0.2 mg/dL (0.2-1.0)
[2019-07-29 05:35] LABS: UR MICROALBUMIN 15.1 mg/dL (< 1.9)
[2019-07-29 05:53] LABS: Urine Bacteria <20 /HPF (NONE SEEN); Urine Culture Reflex Order NOT NEEDED; Urine RBC NONE SEEN /HPF (NONE SEEN)
[2019-07-29 06:17] LABS: Absolute Lymphocytes (CBC) 0.3 K/uL (0.7-4.9); Basophils % 0.3 % (0-1.3); Hematocrit 35.4 % (39.6-49.0); MPV 9.6 fL (7.6-11.3); RBC Red Blood Cell Count 4.34 M/uL (4.33-5.43)
[2019-07-29 06:39] LABS: Albumin 3.1 g/dL (3.4-5.0); Bilirubin Total 0.4 mg/dL (0.2-1.0); Phosphorus 4.3 mg/dL (2.5-4.9); Protein, Total 6.7 g/dL (6.4-8.2); Uric Acid 3.9 mg/dL (3.5-7.2)
--- NOTE | 2019-07-29 08:08 | P.PN ---
Date of Service: 07/29/19 Vital Signs Temp Pulse Resp BP Pulse Ox 98.9 F 94 H 16 131/77 91 07/29/19 04:00 07/29/19 04:32 07/29/19 04:00 07/29/19 04:32 07/29/19 04:00 Medications Acetaminophen (Tylenol -Extra Strength) 500 mg PO Q4HP PRN PRN Reason: TEMP > 100' F Stop: 08/26/19 13:41 Albuterol Sulfate (Proventil 0.083% Neb Soln) 2.5 mg NEB [id number] PRN PRN Reason: SHORTNESS OF BREATH Stop: 08/27/19 12:15 Cholecalciferol (Vitamin D 5,000 Iu Cap) 5,000 unit PO DAILY [facility] Stop: 08/28/19 09:01 Enoxaparin Sodium (Lovenox 30 Mg Inj) 30 mg SQ DAILY [facility]; Protocol Stop: 08/27/19 09:01 Last Admin: 07/28/19 08:39 Dose: 30 mg Furosemide (Lasix) 40 mg IV Q6H [facility] Stop: 08/27/19 17:01 Last Admin: 07/29/19 04:32 Dose: 40 mg Ipratropium [place] (Atrovent Neb) 0.5 mg NEB [id number] [facility] Stop: 08/26/19 14:01 Last Admin: 07/29/19 01:10 Dose: 0.5 mg Ondansetron HCl (Zofran) 4 mg IV Q6HP PRN PRN Reason: NAUSEA / VOMITING Stop: 08/26/19 13:41 Sodium Chloride (Normal Saline Flush) 10 ml IV BID [facility] Stop: 08/26/19 21:01 Last Admin: 07/28/19 20:48 Dose: 10 ml Microbiology Results 07/27/19 12:10 Blood - Blood Aerobic Blood Culture - Preliminary No growth in 24 hours. 07/27/19 12:10 Blood - Blood Anaerobic Blood Culture - Preliminary No growth in 24 hours. 07/27/19 12:25 Blood - Blood Aerobic Blood Culture - Preliminary No growth in 24 hours. 07/27/19 12:25 Blood - Blood Anaerobic Blood Culture - Preliminary No growth in 24 hours. 07/27/19 12:25 Nasopharnyx Influenza Type A Antigen Screen - Final 07/27/19 12:25 Nasopharnyx Influenza Type B Antigen Screen - Final Assessment/ Plan: Nephrology CPS improved with CP. +DUVAL Good urine output. No acute events overnight. Vitals, medications, blood work and imaging reviewed in the chart. General: Alert, Oriented x3, Cooperative HEENT: Atraumatic, Mucous membr. moist/pink Neck: Supple, JVD distended Respiratory: Clear to auscultation bilaterally Cardiovascular: Regular rate/rhythm, Edema Gastrointestinal: Soft and benign, No guarding, Distended Musculoskeletal: No clubbing, No contractures Integumentary: No rashes, No cyanosis Neurological: Normal speech Blood work reviewed in the chart. Cr 3.93 Imagings Data: [facility] 12[facility]15 pm CLINICAL HISTORY: Cough COMPARISON: none FINDINGS: Bilateral pulmonary opacities. Small pleural effusions suspected. The heart is enlarged IMPRESSION: These findings probably indicate CHF. Pneumonia can also have this appearance Conclusions/Impression: A/ SHALINI likely CRS. HyperPO4 CKD IV with proteinuria. Renal mass vs cysts. Diastolic CHF, A/C. Acute respiratory failure with hypoxia. HTN with CKD/ CHF. JAYDEN DM II with CKD? Gout. Anemia in chronic illness. Iron deficiency. Moderate protein malnutrition. P/ Continue current POC and Medications. Lasix q6h. Low sodium diet. Bipap prn. Echocardiogram reviewed. Keep legs elevated as tolerated. No NSAIDs. AM labs. Daily weight.
[2019-07-29] MEDS: VITAMIN D 5,000 UNIT CAP PO SCH (08:37)
[2019-07-29] MEDS: ENOXAPARIN 30 MG/0.3 ML SQ SCH (08:38)
--- NOTE | 2019-07-29 11:14 | RAD REPORT ---
EXAM DESCRIPTION: US - Abdomen Exam Limited - 07/29/2019 11:06 am CLINICAL HISTORY: Ascites Abdominal pain and distention. COMPARISON: Abdomen Pelvis Wo Contrast dated 07/02/2019 FINDINGS: The gallbladder demonstrates small gallstones in the gallbladder neck. No pericholecystic fluid or gallbladder wall thickening. The common bile duct is normal measuring 5 mm.. The liver demonstrates no findings of intrahepatic biliary dilatation. No significant ascites seen. Small right pleural effusion is detected. IMPRESSION: Cholelithiasis without biliary dilatation or evidence of acute cholecystitis. No significant ascites present.
--- NOTE | 2019-07-29 13:33 | ECHO ---
HEIGHT: 5 ft 6 in WEIGHT: 217 lb 1.6 oz DATE OF STUDY: 07/29/[address]: David Ji DO 2-DIMENSIONAL: YES M.MODE: YES DOPPLER: YES COLOR FLOW: YES TDS: PORTABLE: DEFINITY: BUBBLE STUDY: DIAGNOSIS: CONGESTIVE HEART FAILURE CARDIAC HISTORY: CATHERIZATION: NO SURGERY: NO PROSTHETIC VALVE: NO PACEMAKER: NO MEASUREMENTS (cm) DIASTOLIC (NORMALS) SYSTOLIC (NORMALS) IVSd 1.2 (0.6-1.2) LA Diam 3.8 (1.9-4.0) LVEF 78% LVIDd 5.9 (3.5-5.7) LVIDs 3.1 (2.0-3.5) %FS 47% LVPWd 1.2 (0.6-1.2) Ao Diam 3.5 (2.0-3.7) 2 DIMENSIONAL ASSESSMENT: RIGHT ATRIUM: NORMAL LEFT ATRIUM: NORMAL RIGHT VENTRICLE: NORMAL LEFT VENTRICLE: NORMAL TRICUSPID VALVE: NORMAL MITRAL VALVE: NORMAL PULMONIC VALVE: NORMAL AORTIC VALVE: NORMAL PERICARDIAL EFFUSION: NONE AORTIC ROOT: NORMAL LEFT VENTRICULAR WALL MOTION: NORMAL DOPPLER/COLOR FLOW: MILD TRICUSPID REGURGITATION. NORMALRIGHT VENTRICULAR SYSTOLIC PRESSURE. COMMENTS: NORMAL 2-DIMENSIONAL ECHOCARDIOGRAM WITH DOPPLER. NO WALL MOTION ABNORMALITY. MILD TRICUSPID REGURGITATION. NORMAL RIGHT VENTRICULAR SYSTOLIC PRESSURE. TECHNOLOGIST: DORIS ELDRIDGE
--- NOTE | 2019-07-29 14:11 | PN ---
Mr. Saunders was admitted. He has been followed by Dr. Loera for congestive heart failure. He had sign ificant renal insufficiency with renal mass. Nephrology consultation has been ordered. Patient also with history of hypertension. Patient remains in significant CHF. He is still on BiPAP with adequa te oxygen saturation. He has diuresed significantly. He is off DUSTIN inhibitors and angiotensin medical field representative tor alice because of his renal insufficiency. We will continue present regimen. Echocardiogram is pending. We will see what that shows before making further decisions. Continue present regimen for now. MICKY/ZACHL Voice ID: [id number] Report ID: [id number]
[2019-07-29 14:41] LABS: C.diff Antigen/Toxin Ag neg : Tox neg (NEG : NEG)
--- NOTE | 2019-07-29 16:26 | P.PN ---
Subjective Date of Service: 07/29/19 Chief Complaint: SOB Patient states his breathing is better today. He has been on an off BiPAP. Abdominal ultrasound did not show ascites. Echocardiogram result reviewed and reports normal EF. Physical Examination - Vital Signs Temperature: 97.4 F Blood Pressure: 130/56 Pulse: 91 Respirations: 23 Pulse Ox (%): 94 - Physical Exam General: Alert, In no apparent distress, Oriented x3 HEENT: Mucous membr. moist/pink, Sclerae nonicteric Neck: Supple, JVD not distended Respiratory: Normal air movement, Crackles/rales (Bilateral) Cardiovascular: Regular rate/rhythm, Normal S1 S2, Edema (Bilateral lower extremities) Gastrointestinal: Normal bowel sounds, Soft and benign, No tenderness Musculoskeletal: No swelling, No erythema Integumentary: No erythema Neurological: Normal speech, Normal strength at 5/5 x4 extr Assessment And Plan - Current Problems (Diagnosis) (1) Acute pulmonary edema Current Visit: Yes Status: Acute (2) Acute worsening of stage 3 chronic kidney disease Current Visit: Yes Status: Acute (3) Acute respiratory failure with hypoxia Current Visit: Yes Status: Acute (4) Renal mass Current Visit: Yes Status: Acute (5) Sleep apnea Current Visit: Yes Status: Acute Qualifiers: Sleep apnea type: unspecified type Qualified Code(s): G47.30 - Sleep apnea , unspecified (6) HTN (hypertension) Current Visit: Yes Status: Chronic - Plan Pulmonary, Nephrology and cardiology are following. Pulmonary edema, volume overload/anasarca likely secondary to renal failure done heart failure. Nephrology increased IV Lasix. Monitor renal function closely BiPAP p.r.n. BiPAP at night during sleep. Patient and family and want him to be transfered to [facility]. Transfer initiated.
[2019-07-30] MEDS: IPRATROPIUM BROM 0.5MG/2.5ML NEB SCH ×2 (01:10→08:34)
[2019-07-30] MEDS: FUROSEMIDE 40 MG/4 ML VIAL IV SCH (05:20)
[2019-07-30] MEDS: ENOXAPARIN 30 MG/0.3 ML SQ SCH (08:17)
[2019-07-30] MEDS: VITAMIN D 5,000 UNIT CAP PO SCH (08:18)
--- NOTE | 2019-07-30 08:33 | P.DS ---
Admission Date: 07/27/19 Discharge Date: 07/30/19 Disposition: TRANSFER TO [facility] Discharge Condition: FAIR Reason for Admission: SOB Consultations: Cardiology Nephrology - Problems (1) Acute pulmonary edema Status: Acute (2) Acute worsening of stage 3 chronic kidney disease Status: Acute (3) Acute respiratory failure with hypoxia Status: Acute (4) Renal mass Status: Acute (5) Sleep apnea Status: Acute Qualifiers: Sleep apnea type: unspecified type Qualified Code(s): G47.30 - Sleep apnea , unspecified (6) HTN (hypertension) Status: Chronic Brief History of Present Illness: 78-year-old gentleman with a history chronic kidney disease and renal mass presented to the ED with a complaint of progressive shortness of breath. He was in respiratory distress on arrival. His oxygen saturation was in the 60s. He was placed on BiPAP therapy. Chest x-ray demonstrated pulmonary edema. Initial troponin was negative. Patient was admitted for further management. Hospital Course: Patient was admitted to the medical floor. Nephrology was consulted to assist with management. The patient was treated with IV Lasix. His shortness of breath improved but he was still dyspneic and required the BiPAP intermittently. His serum creatinine slightly increased with the IV Lasix. Troponin trended negative. Echocardiogram done reported normal EF. Abdominal ultrasound showed no ascites. His pulmonary edema is likely related to his kidney disease. Patient and daughter requested for patient to be transfered to [facility] for further management. The patient has been accepted for transfer today. Vital Signs/Physical Exam: Temp Pulse Resp BP Pulse Ox 98.0 F 98 H 16 134/78 94 07/30/19 04:00 07/30/19 05:20 07/30/19 04:00 07/30/19 05:20 07/30/19 04:00 General: Alert, In no apparent distress, Oriented x3 Neck: Supple, JVD not distended Respiratory: Normal air movement, Crackles/rales (Bilateral) Cardiovascular: Regular rate/rhythm, Normal S1 S2, Edema (Bilateral lower extremities.) Gastrointestinal: Normal bowel sounds, Soft and benign, Other (Protuberant.) Neurological: Normal speech, Normal strength at 5/5 x4 extr Laboratory Data at Discharge: WBC 8.7 K/uL (4.3-10.9) D 07/29/19 05:24 Hgb 11.0 g/dL (13.6-17.9) L 07/29/19 05:24 Hct 35.4 % (39.6-49.0) L 07/29/19 05:24 Plt Count 178 K/uL (152-406) 07/29/19 05:24 Sodium 138 mmol/L (136-145) 07/29/19 05:24 Potassium 4.0 mmol/L (3.5-5.1) 07/29/19 05:24 BUN 65 mg/dL (7-18) H 07/29/19 05:24 Creatinine 3.95 mg/dL (0.55-1.3) H 07/29/19 05:24 Glucose 91 mg/dL (74-106) 07/29/19 05:24 Uric Acid 3.9 mg/dL (3.5-7.2) 07/29/19 05:24 Phosphorus 4.3 mg/dL (2.5-4.9) 07/29/19 05:24 Magnesium 3.0 mg/dL (1.8-2.4) H 07/28/19 04:20 Total Bilirubin 0.4 mg/dL (0.2-1.0) 07/29/19 05:24 AST 24 U/L (15-37) 07/29/19 05:24 ALT 16 U/L (12-78) 07/29/19 05:24 Alkaline Phosphatase 73 U/L (45-117) 07/29/19 05:24 Troponin I < 0.02 ng/mL (0.0-0.045) 07/28/19 12:52 Lipase 261 U/L (73-393) 07/27/19 12:25 Home Medications: Allopurinol 1 tab PO BEDTIME 07/27/19 Allopurinol 1 tab PO DAILY 07/27/19 Amlodipine [Norvasc*] 10 mg PO BID 07/27/19 Aspirin 81 mg PO DAILY 07/27/19 Atorvastatin Calcium [Lipitor] 80 mg PO DAILY 07/27/19 Carvedilol [Coreg] 1 tab PO BID 07/27/19 Ferrous Sulfate [Feosol] 2 tab PO DAILY 07/27/19 Icosapent Ethyl [Vascepa 1 gm Cap] 2 cap PO BID 07/27/19 Lisinopril [Zestril] 40 mg PO DAILY 07/27/19 Patient Discharge Instructions: Patient to follow with Dr. Sykes. I have told for an outpatient sleep study Activity: Ad adrian Followup: Samuel Sykes MD [ACTIVE - CAN ADMIT] - (call schedule appointment) Time spent managing pt's care (in minutes): 42
[2019-07-30 08:48] VITALS: TEMP 98.3
[2019-07-30] MEDS ORDERED: FUROSEMIDE 40 MG/4 ML VIAL IV SCH (09:00)
[2019-07-30 09:39] VITALS: O2SAT 95
[2019-07-30 11:10] VITALS: BP 120/60
--- NOTE | 2019-07-30 13:00 | PN ---
Date of Progress Note: 07/30/2019 Subjective: Patient was seen and examined at bedside. He is doing better. Denies any overnight taylor nts. He remains on BiPAP at this time. He states that his lower extremity edema is improving. His shortness of breath is also improving. In's and out's have been reviewed. Patient has had -2924 mL since the last 24 hours. Physical Examination: General: He appears in no acute distress. He is on BiPAP. HEENT: Atraumatic head. No JVD was noted. Lungs: Auscultation of the lungs revealed bilateral equal air entry. No crackles or wheezes were no jayleen. Abdomen: Soft and nontender. Extremities: Showed no evidence of any edema with wrinkling of the skin. Heart: Auscultation of the heart revealed regular rate and rhythm. Laboratory Data: At this time is showing creatinine of 3.95, BUN of 65, and other electrolytes are s table. CBC is showing stable hemoglobin, hematocrit, and platelet count. Current Medications: Reviewed. He is on Lasix 40 mg every 6 hours and nebulizer treatments. Impression: 1.Acute on chronic renal insufficiency, currently with overall stable renal function with underlying stage 4 to stage 5 kidney disease. 2.Acute diastolic heart failure exacerbation, currently with improving volume status and good amount of diuresis and he has evidence of wrinkling of the skin and with clear lung sounds showing evidence of improved congestive heart failure at this time. I would like to back off on the Lasix to every 1 2 hours and monitor him closely. 3.Renal mass noted. Will need outpatient followup with Urology. 4.Debility and weakness, improving. Plan: Patient is overall doing much better. Significant diuresis has been achieved. We will decrea se the frequency of the Lasix. Continue to monitor closely. Avoid further hypotension and nephrotox ins and continue low-sodium diet at this time. Patient has been initiated transfer to [facility] per request of the family. VV/MODL Voice ID: [id number] Report ID: [id number]
== END 2019-07-30 10:14 | disposition short-term general hospital (02) | DRG 291 ==
LOC: ER 11:32 → ERHOLD 13:42 → 4TH 16:31
PROVIDERS: ADMIT Family Medicine; ATTEND Internal Medicine
PROC: 5A09457 Assistance with Respiratory Ventilation, 24-96 Consecutive Hours, Continuous Positive Airway Pressure (ICD-10-PCS; principal; 2019-07-27)
DX: I13.0 Hypertensive heart and chronic kidney disease with heart failure and stage 1 through stage 4 chronic kidney disease, or unspecified chronic kidney disease (principal); I50.43 Acute on chronic combined systolic (congestive) and diastolic (congestive) heart failure; J96.01 Acute respiratory failure with hypoxia; J96.02 Acute respiratory failure with hypercapnia; N17.9 Acute kidney failure, unspecified; N18.4 Chronic kidney disease, stage 4 (severe); N28.89 Other specified disorders of kidney and ureter; E11.22 Type 2 diabetes mellitus with diabetic chronic kidney disease; G47.30 Sleep apnea, unspecified
CPT/HCPCS: 36415; 71045; 76705; 80048; 80053; 80069; 80076; 81001; 81003; 81015; 82043; 82550; 82553; 82570; 82805; 83036; 83605; 83690; 83735; 83880; 84100; 84145; 84443; 84484; 84550; 85025; 87040; 87324; 87449; 87804; 93005; 93306; 94660; 94760; 96365; 96366; 96375; 99285; J1650; J1940; J2930; J3475

== ENCOUNTER 2024-09-25 09:17 | Day surgery (SDC) | payer OTHER ==
[2024-09-23 15:13] LABS: Absolute Eosinophils 0.1 K/uL (0-0.5); Absolute Lymphocytes (CBC) 0.5 K/uL (0.7-4.9); Absolute Monocytes 0.7 K/uL (0.1-1.3); Absolute Neutrophil 3.3 K/uL (1.8-8.0); Basophils % 0.8 % (0-1.3); Eosinophils % 1.9 % (0-4.4); Hematocrit 33.5 % (39.6-49.0); Hemoglobin 10.6 g/dL (13.6-17.9); Lymphocytes % 10.5 % (15.3-44.8); MCH 27.4 pg (27.0-35.0); MCHC 31.6 g/dL (32.0-36.0); MCV 86.8 fL (80-100); MPV 8.4 fL (7.6-11.3); Neutrophils % 71.8 % (41.7-73.7); Nucleated RBC Absolute Count 0.1 (0-0); Nucleated Red Blood Cells % 1.9 % (0-0); Platelets 164 thou/uL (152-406); RBC Red Blood Cell Count 3.87 M/uL (4.33-5.43); Red Cell Distribution Width 17.7 % (12.1-15.2)
[2024-09-23 15:20] LABS: Anion Gap 10.4 mEq/L (5.0-15.0); Potassium 4.4 mEq/L (3.5-5.1)
[2024-09-23 20:29] LABS: Blood Morphology Comment NOT SEEN (NOT SEEN); Platelet Estimate ADEQ; White Blood Cell Scan OK (OK)
--- NOTE | 2024-09-24 12:36 | EKG ---
Test Date: 2024-09-23 Test Time: 14:33:07 Kiln Labourer: MEASUREMENT RESULTS: Intervals: Rate: 75 NC: 262 QRSD: 94 QT: 410 QTc: 457 [place]: P: 54 NC: 262 QRS: -17 T: 75 INTERPRETIVE STATEMENTS: Sinus rhythm with sinus arrhythmia with 1st degree AV block Minimal voltage criteria for LVH, may be normal variant Nonspecific ST and T wave abnormality Abnormal ECG Compared to ECG 07/27/2019 12:07:26 Left ventricular hypertrophy now present ST (T wave) deviation now present Electronically Signed On 09-24-24 12:35:59 CDT by Bill Franklin
[2024-09-25] MEDS ORDERED: NA CHLORIDE 0.9% 500 ML ONE (09:35)
[2024-09-25] MEDS ORDERED: propofoL 200 MG/20 ML VIAL IV ONE (10:57)
[2024-09-25] MEDS ORDERED: LIDOCAINE 1% MPF 5 ML VIAL ONE (10:57)
[2024-09-25 13:23] VITALS: BP 141/73; TEMP 98; O2SAT 99
== END 2024-09-25 12:55 | disposition home or self-care (01) ==
LOC: OR 09:17
PROVIDERS: ATTEND Surgery
PROC: 0DBL8ZX Excision of Transverse Colon, Via Natural or Artificial Opening Endoscopic, Diagnostic (ICD-10-PCS; 2024-09-25)
PROC: 0DBF8ZX Excision of Right Large Intestine, Via Natural or Artificial Opening Endoscopic, Diagnostic (ICD-10-PCS; principal; 2024-09-25 11:00)
DX: Z12.11 Encounter for screening for malignant neoplasm of colon (principal); K64.8 Other hemorrhoids; D12.2 Benign neoplasm of ascending colon; D12.3 Benign neoplasm of transverse colon
CPT/HCPCS: 45385; 93005; 85025; 80048; 36415; 88305; J2704; J2003; J7040